=== PATIENT | male | born 1970 | race Caucasian/White ===

== ENCOUNTER 2021-12-21 07:11 | Day surgery (SDC) | payer OTHER ==
[~2021-12-21] VITALS: Ht 170.2 cm; Wt 73.2 kg
[2021-12-21] VITALS (8 sets, daily range): BP systolic 96–132; BP diastolic 59–99
--- NOTE | 2021-12-21 07:00 | NUR ---
Patient arrived to the [facility] suite, identification and demographics confirmed. Patient to room 10, AAO, ambulatory, vitals obtained, ID/allergy/fall bands placed, changed into hospital gown, ULISES hose, and non-slip socks. Procedure and timeline explained for treatment and discharge. All questions answered and the patient presents no concerns at this time.
--- NOTE | 2021-12-21 07:27 | NUR ---
Dr. Dai telephoned with patient intake information including usage, dose, last dose/time taken and initial vital signs. Patient history and allergies reviewed with MD. Orders received for 15 mg PO Valium and 0.2 mg PO Clonidine now. Will reassess per protocol in 1.5 hours and update MD with assessment and vitals.
[2021-12-21 07:42] LABS: HEMATOCRIT 42.3 % (39.0-50.0); HEMOGLOBIN 14.9 g/dl (14.0-18.0); IMMATURE GRANULOCYTES 0.1 % (0.0-5.0); MEAN CORPUSCULAR HGB 32.4 pG CALC (26.0-32.0); MEAN CORPUSCULAR HGB CONC 35.2 g/dL CAL (32.0-36.0); NEUT# 6.06 thou/uL (1.82-7.42); RED BLOOD COUNT 4.6 mill/uL (4.70-6.10); RED CELL DISTRI WIDTH 12.5 % (11.5-15.5)
--- NOTE | 2021-12-21 07:50 | NUR ---
Patient pre-medicated.
[2021-12-21 07:59] LABS: ALBUMIN 5.2 g/dL (3.2-5.0); ALKALINE PHOSPHATASE 54 u/l (38-126); ANION GAP 15 (6-22 (CALC)); BILIRUBIN, TOTAL 0.6 mg/dL (0.0-1.4); BUN 14 mg/dL (9-20); BUN/CREATININE RATIO 20 (12-20 (CALC)); CARBON DIOXIDE 26 mmol/l (22-30); CHLORIDE 103 mmol/l (95-108); CREATININE 0.7 mg/dL (0.7-1.3); GFR FOR AFR.AMER. > 60 ML/MIN (>=60 (CALC)); GFR OTHER RACES > 60 ML/MIN (>=60 (CALC)); POTASSIUM 4.2 mmol/l (3.5-5.1); SGOT/AST 35 u/l (17-59); SODIUM 140 mmol/l (137-146)
--- NOTE | 2021-12-21 08:30 | NUR ---
Patient restless in bed. In and out of sleep, maintains focus, and drifts back to sleep. Patient c/o restless legs and cramping. SCDs and warm forced air added for comfort. Patient reports some relief. VSS. No distress noted at this time.
--- NOTE | 2021-12-21 09:18 | NUR ---
Dr. Dai telephoned with reassessment and new vital signs. Reviewed initial Valium and Clonidine dose with MD. Orders received for 10 PO Valium and 0.2 mg PO Clonidine now. Will reassess per protocol in 1.5 hours and update MD with assessment and vitals.
--- NOTE | 2021-12-21 10:35 | NUR ---
Dr. Dai telephoned with reassessment and new vital signs. Reviewed initial Valium and Clonidine dose with MD. Orders received for Versed 2 mg IVP and 0.2 mg PO Clonidine now. Will reassess per protocol in 1.5 hours and update MD with assessment and vitals. Patient remains awake and restless in bed. Easily aroused if asleep , maintains focus, and drifts back to sleep. No acute distress noted at this time. Continuous SPO2 and respiratory monitoring initiated. IVF @ 250 mL/HR, room air, VSS.
--- NOTE | 2021-12-21 11:39 | NUR ---
Patient resting comfortably in bed. Easily aroused, maintains focus, and drifts back to sleep. Patient continues to c/o restless/cramping legs but no distress noted at this time. Continuous SPO2, rhythm, and respiratory monitoring initiated. IVF @ 250 mL/HR, room air, VSS.
--- NOTE | 2021-12-21 12:15 | NUR ---
Patient resting comfortably in bed. Easily aroused, maintains focus, and drifts back to sleep. No signs of active withdrawal or distress noted at this time. Continuous SPO2, rhythm, and respiratory monitoring initiated. IVF @ 250 mL/HR, room air, VSS.
--- NOTE | 2021-12-21 12:53 | NUR ---
Induction Note Patient to [facility] procedure room. Time out performed at 1253. Patient placed on monitors, Valerie hugger, bilateral wrist restraints applied for ET tube protection. Versed 5mg given IV push at 1254 Tourniquet applied to RIGHT arm Lidocaine 100mg given at 1255 IV push followed by Rocoronium 10mg at 1255 IV push and held for 45 seconds. Propofol bolus of 120 mg given at 1258 IV push. Succinylcholine 80mg given IV push at 1258. Smooth intubation at 1258 with 7.5 ETT @23L. Positive CO2. Positive Auscultation for air exchange. Patient placed on ventilator for spontaneous ventilation. Placed on Propofol IV drip at 1258. OG inserted. Positive air on auscultation. Positive gastric content. Stomach washed at this time.
--- NOTE | 2021-12-21 13:20 | NUR ---
OG close note Stomach washed at this time. Naltrexone 50 mg with Clonidine 0.1 mg via OG tube. OG will be clamped for 45 minutes.
--- NOTE | 2021-12-21 14:05 | NUR ---
OG open note OG open at this time. Gastric content draining into drainage bag. OG to drain for 45 minutes. Propofol will be titrated down based on patient.
--- NOTE | 2021-12-21 14:10 | NUR ---
Induction Note Patient to [facility] procedure room. Time out performed at 1253. Patient placed on monitors, Valerie hugger, bilateral wrist restraints applied for ET tube protection. Versed 5mg given IV push at 1254 Tourniquet applied to RIGHT arm Lidocaine 100mg given at 1255 IV push followed by Rocoronium 10mg at 1255 IV push and held for 90 seconds. Propofol bolus of 120 mg given at 1257 IV push. Succinylcholine 80mg given IV push at 1258. Smooth intubation at 1258 with 7.5 ETT @ 23L. Positive CO2. Positive Auscultation for air exchange. Patient placed on ventilator for spontaneous ventilation. Placed on Propofol IV drip at 1258. OG inserted. Positive air on auscultation. Positive gastric content. Stomach washed at this time.
--- NOTE | 2021-12-21 14:45 | NUR ---
OG close note Stomach washed at this time. Naltrexone 50 mg with Clonidine 0.2 mg via OG tube. OG will be clamped for 45 minutes.
--- NOTE | 2021-12-21 16:15 | NUR ---
No OG close. Patient minimally reacting to treatment at this time. Vitals, total doses of Naltrexone & Clonidine, current Propofol infusion rate, treatment duration, and patient assessment discussed with Dr. Dai. No orders for medication administration at this time.
--- NOTE | 2021-12-21 17:47 | NUR ---
Extubation note Closing medications given Benadryl 50mg IV push, Decadron 10mg IV push,Magnesium 4 grams IV, Zofran 8mg IV push, Octreotide 100mcg SC. Stomach washed out prior to extubation. Suctioned gastric content. OG removed. Patient extubated. Propofol Discontinued. Wrist restraints removed. Valerie hugger Removed. See [facility] Moderate sedate recovery record for further notes and assessment.
[2021-12-21] MEDS ORDERED: NALTREXONE50 MG PO (17:53)
[2021-12-21] MEDS ORDERED: KLONOPIN2 MG PO (17:53)
[2021-12-21] MEDS ORDERED: CLONIDINE0.1 MG PO (17:53)
--- NOTE | 2021-12-21 18:12 | NUR ---
Receive Patient from [facility] Procedure. Report from Sidra ROSS. Patient under the effects of anesthesia. no observe distress at this time. 2L NC placed per orders, oral airway remains in place. O2 96% IVF to continue at 100ML/HR. Safety and fall precautions in place. Call light within in reach.
--- NOTE | 2021-12-21 18:15 | NUR ---
Patient to room 283 in no acute distress. Transfer of care to [facility]ta at bedside. 2L NC placed per orders, oral airway remains in place for sonorous respirations. O2 sats 97% on 2L. IVF to continue at 100ml/hr. Patient resting comfortably. Bed alarm set. See chart/EMAR for procedural details and assessments. Handoff of care at the time of this note.
--- NOTE | 2021-12-21 19:00 | NUR ---
PATIENT RESTING IN BED. NO SIGNS OF DISTRESS NOTED. NO SIGNS OF PAIN. BED REMAINS IN LOW POSITION. BED ALARM ACTIVE FOR SAFETY.
--- NOTE | 2021-12-21 23:33 | NUR ---
PATIENT RECEIVED ALL SCHEDULED MEDS AT THIS TIME. ALERT AND ABLE TO MAKE NEEDS KNOWN. DRINKING AND VOIDING WITHOUT DIFFICULTY. BED REMAINS IN LOW POSITION. BED ALARM ACTIVE. CALL LANDRY IN REACH.
[2021-12-22 03:49] VITALS: BP 111/62
--- NOTE | 2021-12-22 04:56 | NUR ---
RECEIVED SCHEDULED MEDS WITHOUT DIFFICULTY. PATIENT REMAINS ALERT AND ABLE TO MAKE NEEDS KNOWN. NO COMPLAINTS AT THIS TIME. BED REMAINS IN LOW POSITION. CALL LIGHT IN REACH.
[2021-12-22 05:45] LABS: HEMATOCRIT 38.8 % (39.0-50.0); IMMATURE GRANULOCYTES 0.2 % (0.0-5.0); MEAN CELL VOLUME 91.5 fL CALC (80.0-100.0); MEAN CORPUSCULAR HGB CONC 36.1 g/dL CAL (32.0-36.0); NEUT# 14.29 thou/uL (1.82-7.42); RED BLOOD COUNT 4.24 mill/uL (4.70-6.10); RED CELL DISTRI WIDTH 12.5 % (11.5-15.5)
[2021-12-22 06:06] LABS: ALBUMIN 4.2 g/dL (3.2-5.0); ALKALINE PHOSPHATASE 37 u/l (38-126); ANION GAP 15 (6-22 (CALC)); BILIRUBIN, TOTAL 0.8 mg/dL (0.0-1.4); BUN 15 mg/dL (9-20); BUN/CREATININE RATIO 22 (12-20 (CALC)); CARBON DIOXIDE 23 mmol/l (22-30); CHLORIDE 107 mmol/l (95-108); CREATININE 0.7 mg/dL (0.7-1.3); GFR FOR AFR.AMER. > 60 ML/MIN (>=60 (CALC)); GFR OTHER RACES > 60 ML/MIN (>=60 (CALC)); MAGNESIUM 1.9 mg/dL (1.6-2.3); POTASSIUM 4.2 mmol/l (3.5-5.1); SGOT/AST 30 u/l (17-59); SODIUM 141 mmol/l (137-146); TOTAL PROTEIN 6.9 g/dL (6.3-8.2)
--- NOTE | 2021-12-22 07:00 | NUR ---
RECEIVE REPORT FROM CHANI ROSS.
[2021-12-22 07:18] VITALS: BP 114/71
--- NOTE | 2021-12-22 08:00 | NUR ---
PATIENT RESTING PLEASANT IN BED. ASSESSMENT HEAD-TO TOE COMPLETE. VITAL SIGN STABLE. PATIENT IS EDUCATED ABOUD MEDICATIONS AND NURSING PLAN FOR TODAY. PATIOENT REFER UNDERSTAND. SAFETY AND FALL PRECAUTIONS IN [facility]. SITTER AT BEDSIDE. CALL LIGHT WITHIN IN REACH.
[2021-12-22 08:15] VITALS: BP 114/71
--- NOTE | 2021-12-22 12:21 | NUR ---
PATIENT RESTING IN BED STABLE AT THIS TIME. MEDICATIONS DONE.
--- NOTE | 2021-12-22 15:00 | NUR ---
Discharge instructions given. Patient verbalizes understanding of same. Discharged in stable condition via Wheelchair to Home with staff. All belongings sent with pt.
== END 2021-12-22 15:04 | disposition home or self-care (01) | DRG 897 ==
LOC: ANR 07:11 → ANR-I 07:12 → MS2 16:00 → ANR 12-22 15:04
PROVIDERS: ATTEND Anesthesiology
DX: F11.20 Opioid dependence, uncomplicated (principal)
CPT/HCPCS: J2354

== ENCOUNTER 2024-04-15 02:31 | Day surgery (SDC) | payer OTHER ==
[~2024-04-15] VITALS: Ht 170.2 cm; Wt 77.1 kg
[2024-04-15] VITALS (228 sets, daily range): BP systolic 94–165; BP diastolic 46–104
[~2024-04-15 02:31] MED LIST: CLONIDINE0.1 MG PO; KLONOPIN2 MG PO; NALTREXONE50 MG PO; SODIUM CHLORIDE 0.9% 1,000 ML IV PRN
[2024-04-15] MEDS ORDERED: cloNIDine HCL 0.1 MG/TAB PO PRN (07:30)
[2024-04-15] MEDS ORDERED: diazePAM 5 MG/TAB PO PRN ×2 (07:30→08:30)
[2024-04-15] MEDS ORDERED: FAMOTIDINE 20 MG/TAB PO PRN (07:30)
[2024-04-15] MEDS ORDERED: LACTATED RINGER'S 1,000 ML IV PRN ×2 (07:30→09:35)
[2024-04-15] MEDS ORDERED: CYANOCOBALAMIN 500 MCG/TAB ( B12) PO PRN (07:30)
[2024-04-15] MEDS ORDERED: SCOPOLAMINE 1.5 MG DIS TD PRN (07:30)
[2024-04-15] MEDS ORDERED: PANTOPRAZOLE SODIUM Sesquihydr 40 MG/TAB PO PRN (07:30)
[2024-04-15] MEDS ORDERED: ALBUTEROL SULFATE 2.5 MG VIAL IN PRN (07:30)
[2024-04-15] MEDS ORDERED: ASCORBIC ACID 4,000 MG in SODIUM CHLORIDE 0.9% 1,000 ML IV SCH (08:00)
[2024-04-15 08:34] LABS: BASO% 0.1 % (0-3); EOS% 0.7 % (0-8); HEMOGLOBIN 15.8 g/dl (14.0-18.0); IMMATURE GRANULOCYTES 0.2 % (0.0-5.0); LYMPH% 17.9 % (15-41); MEAN CORPUSCULAR HGB 33.2 pG CALC (26.0-32.0); MEAN CORPUSCULAR HGB CONC 33.8 g/dL CAL (32.0-36.0); MONO% 7.5 % (2-13); NEUT# 8.16 thou/uL (1.82-7.42); NEUT% 73.6 % (42-76); RED BLOOD COUNT 4.76 mill/uL (4.70-6.10); RED CELL DISTRI WIDTH 12.3 % (11.5-15.5)
[2024-04-15] MEDS ORDERED: PHENYLEPHRINE HCL 10 MG in DEXTROSE 5% 250 ML IV SCH (08:35)
[2024-04-15 08:46] LABS: ALBUMIN 4.8 g/dL (3.2-5.0); BILIRUBIN, TOTAL 0.6 mg/dL (0.2-1.3); CREATININE 1.1 mg/dL (0.7-1.3); POTASSIUM 3.7 mmol/l (3.5-5.1); TOTAL PROTEIN 7.5 g/dL (6.3-8.2)
[2024-04-15 09:20] LABS: HEMATOCRIT 46.7 % (39.0-50.0); MEAN CELL VOLUME 98.1 fL CALC (80.0-100.0)
[2024-04-15] MEDS ORDERED: ROCURONIUM BROMIDE 10 MG/ML 5 ML VIAL IV PRN (09:35)
[2024-04-15] MEDS ORDERED: diazePAM 5 MG/TAB VT PRN (09:35)
[2024-04-15] MEDS ORDERED: NALTREXONE HCL 50 MG/TAB VT PRN (09:35)
[2024-04-15] MEDS ORDERED: PROPOFOL 10 MG/ML 100ML VIAL IV PRN (09:35)
[2024-04-15] MEDS ORDERED: cloNIDine HYDROCHLORIDE 100 MCG/ML 10 ML INJ IV PRN (09:35)
[2024-04-15] MEDS ORDERED: SUCCINYLCHOLINE CHLORIDE 20 MG/ML 10ML VIAL IV PRN (09:35)
[2024-04-15] MEDS ORDERED: OCTREOTIDE ACETATE 100 MCG/VIAL SDV SC PRN (09:35)
[2024-04-15] MEDS ORDERED: MAGNESIUM SULFATE HEPTAHYDRATE 100 ML IV PRN (09:35)
[2024-04-15] MEDS ORDERED: ONDANSETRON HCl 4 MG/2 ML SDV IV PRN ×3 (09:35→19:00)
[2024-04-15] MEDS ORDERED: THIAMINE HCL 100 MG/ML 2ML VIAL IV PRN (09:35)
[2024-04-15] MEDS ORDERED: MIDAZOLAM HCL 2 MG/2 ML VIAL IV PRN ×3 (09:35→15:25)
[2024-04-15] MEDS ORDERED: cloNIDine HCL 0.1 MG/TAB VT PRN (09:35)
[2024-04-15] MEDS ORDERED: PROPOFOL 100 ML IV PRN (09:35)
[2024-04-15] MEDS ORDERED: LIDOCAINE HCL 1% (10MG/ML) 100 MG/10 ML MDV IV PRN (09:35)
[2024-04-15] MEDS ORDERED: DiphenhydrAMINE HCL 50 MG/ML SDV IV PRN (09:35)
[2024-04-15] MEDS ORDERED: LIDOCAINE HCL 1% (10MG/ML) 100 MG/10 ML MDV VT PRN ×2 (09:35)
[2024-04-15] MEDS ORDERED: STERILE WATER FOR IRRIGATION 1,000 ML BTL IR PRN (09:35)
[2024-04-15] MEDS ORDERED: POTASSIUM CHLORIDE 10 MEQ/50 ML BAG IV PRN (09:40)
[2024-04-15] MEDS ORDERED: SODIUM CHLORIDE 0.9% 1,000 ML IV PRN ×2 (09:40→15:20)
[2024-04-15] MEDS ORDERED: DEXMEDETOMIDINE HCL IN SODIUM 100 ML IV SCH (11:55)
[2024-04-15] MEDS ORDERED: NALTREXONE50 MG PO (14:54)
[2024-04-15] MEDS ORDERED: KLONOPIN2 MG PO (14:54)
[2024-04-15] MEDS ORDERED: CLONIDINE0.1 MG PO (14:54)
[2024-04-15] MEDS ORDERED: clonazePAM 1 MG/TAB PO PRN (15:20)
[2024-04-15] MEDS ORDERED: PROMETHAZINE HCL 12.5 MG in SODIUM CHLORIDE 0.9% 50 ML IV PRN (19:00)
[2024-04-15] MEDS ORDERED: ACETAMINOPHEN 500 MG TAB PO PRN (19:00)
[2024-04-15] MEDS ORDERED: KETOROLAC TROMETHAMINE 30 MG/ML SDV IV PRN (19:00)
[2024-04-15] MEDS ORDERED: PROMETHAZINE HCL 25 MG in SODIUM CHLORIDE 0.9% 50 ML IV PRN (19:00)
[2024-04-15] MEDS ORDERED: HALOPERIDOL LACTATE 5 MG/ML SDV IV PRN ×2 (19:00→23:30)
[2024-04-15] MEDS ORDERED: ACETAMINOPHEN 1,000 MG/100 ML VIAL IV PRN (19:00)
[2024-04-15] MEDS ORDERED: PATIENT' OWN MED CONTROLLED 1 EA DOSE IV PRN (21:00)
[2024-04-15] MEDS ORDERED: cloNIDine HCL 0.1 MG/TAB PO SCH (23:00)
[2024-04-15] MEDS ORDERED: LORazepam 2 MG/ML IV SCH (23:27)
[2024-04-15] MEDS ORDERED: LORazepam 2 MG/ML IV PRN (23:45)
[2024-04-16] MEDS ORDERED: NALTREXONE HCL 50 MG/TAB PO SCH ×2 (04:00)
[2024-04-16] MEDS ORDERED: cloNIDine HCL 0.1 MG/TAB PO PRN (04:00)
[2024-04-16] MEDS ORDERED: clonazePAM 1 MG/TAB PO PRN ×2 (04:00→08:00)
[2024-04-16 04:05] VITALS: BP 125/79
[2024-04-16 04:49] LABS: HEMATOCRIT 44.8 % (39.0-50.0); HEMOGLOBIN 15.3 g/dl (14.0-18.0); IMMATURE GRANULOCYTES 0.4 % (0.0-5.0); LYMPH% 4.5 % (15-41); MEAN CELL VOLUME 99.1 fL CALC (80.0-100.0); MEAN CORPUSCULAR HGB 33.8 pG CALC (26.0-32.0); MEAN CORPUSCULAR HGB CONC 34.2 g/dL CAL (32.0-36.0); MONO% 3.6 % (2-13); NEUT# 14.38 thou/uL (1.82-7.42); NEUT% 91.5 % (42-76); RED BLOOD COUNT 4.52 mill/uL (4.70-6.10); RED CELL DISTRI WIDTH 12.3 % (11.5-15.5)
[2024-04-16 05:24] LABS: ALBUMIN 4.3 g/dL (3.2-5.0); CREATININE 1.1 mg/dL (0.7-1.3); POTASSIUM 4.1 mmol/l (3.5-5.1); TOTAL PROTEIN 6.9 g/dL (6.3-8.2)
[2024-04-16 05:40] LABS: BILIRUBIN, TOTAL 1.2 mg/dL (0.2-1.3)
[2024-04-16 07:17] VITALS: BP 147/92
[2024-04-16 07:47] VITALS: BP 147/92
[2024-04-16] MEDS ORDERED: PANTOPRAZOLE SODIUM Sesquihydr 40 MG/TAB PO SCH (08:00)
[2024-04-16] MEDS ORDERED: ACETAMINOPHEN 325 MG/TAB PO SCH (08:00)
[2024-04-16] MEDS ORDERED: cloNIDine HCL 0.1 MG/TAB PO SCH (08:00)
[2024-04-16] MEDS ORDERED: ACETAMINOPHEN 500 MG TAB PO PRN (09:00)
[2024-04-16] MEDS ORDERED: MAGNESIUM OXIDE 400 MG/TAB PO PRN (09:00)
[2024-04-16] MEDS ORDERED: Cholecalciferol 2,000 UNIT/TAB PO PRN (09:00)
== END 2024-04-16 15:25 | disposition home or self-care (01) | DRG 897 ==
LOC: MS2 02:31 → ANR 02:31 → MS2 15:30 → ANR 04-16 15:25
PROVIDERS: ATTEND Anesthesiology Critical Care Medicine
DX: F11.20 Opioid dependence, uncomplicated (principal)
CPT/HCPCS: J0131; J1100; J1200; J2354; J2405; J2704; J3411; J3475; J3490